=== PATIENT | female | born 1955 | race Caucasian/White ===

== ENCOUNTER 2017-05-09 10:48 | Emergency (ER) | payer BC ==
[~2017-05-09] VITALS: Ht 162.6 cm; Wt 84.1 kg
[2017-05-09 11:32] LABS: HEMATOCRIT 37.2 % (36.0-46.0); MCH 35.7 PG (29.0-34.0); MCHC 35.8 G/DL (30.0-36.0); MCV 99.7 FL (83-99); RBC DIS.WIDTH-CV 15.2 % (11.8-14.6); RED BLOOD COUNT 3.73 M/uL (3.80-5.20); WHITE BLOOD COUNT 9.1 K/uL (4.1-10.2)
[2017-05-09 11:40] LABS: CHLORIDE 106 mEq/L (99-109); POTASSIUM 4.2 mEq/L (3.7-5.4); SODIUM 141 mEq/L (136-147)
[2017-05-09 11:42] LABS: GLUCOSE 241 mg/dL (70-99)
[2017-05-09 11:43] LABS: ANION GAP 13 MEQ/L (2-14)
[2017-05-09 11:46] LABS: GFR ESTIMATE (CALCULATED) > 59 mL/min/
[2017-05-09 11:47] LABS: UREA NITROGEN (BUN) 8 mg/dL (9-23)
[2017-05-09 11:52] LABS: TROP-I INTERPRETATION NEGATIVE; TROPONIN-I 0.02 ng/mL (0.0-0.30)
[2017-05-09 12:11] LABS: IMM.PLATELET FRACTION 12.4 (1-7); MEAN PLAT.VOLUME 12.4 uM^3 (9.5-12.4); PLAT.SUFFICIENCY DECREASED; PLATELET COUNT 46 K/uL (156-360)
[2017-05-09 13:18] LABS: ADD MIUA? YES; BILIRUBIN NEGATIVE; BLOOD SMALL; COLOR AMBER ((YELLOW)); GLUCOSE (STRIP) NEGATIVE; KETONES NEGATIVE; LEUKOCYTES NEGATIVE; NITRITE NEGATIVE; PROTEIN (STRIP) 100; SPECIFIC GRAVITY 1.023 (1.000-1.030)
[2017-05-09 13:23] LABS: BACTERIA RARE /HPF; EPITHELIAL CELLS 3+ /HPF; HYALINE CASTS 20-30 /LPF; MUCUS 1+ /LPF; RED BLOOD CELLS 0-5 /HPF (0-5); UCUL ADDED? YES; URIC ACID CRYSTALS 3+ /HPF
[2017-05-09 13:38] LABS: INTER. NORMALIZED RATIO 1.3; PROTHROMBIN TIME 14.5 SEC (10.2-12.9)
[2017-05-09 13:41] LABS: PTT 42.6 SEC (25-37)
[2017-05-09 13:45] LABS: ALKALINE PHOSPHATASE 184 IU/L (3-129)
[2017-05-09 13:48] LABS: DIRECT BILIRUBIN 0.9 mg/dL (0.0-0.3)
[2017-05-09 15:00] LABS: TROP-I INTERPRETATION NEGATIVE; TROPONIN-I 0.01 ng/mL (0.0-0.30)
[2017-05-09 16:15] VITALS: BP 153/72
== END 2017-05-09 16:17 | disposition home or self-care (01) ==
LOC: EME 10:48
PROVIDERS: Physician Assistant Medical
DX: S40.021A Contusion of right upper arm, initial encounter (principal); X58.XXXA Exposure to other specified factors, initial encounter; D69.6 Thrombocytopenia, unspecified; K74.60 Unspecified cirrhosis of liver; N64.4 Mastodynia; Z98.890 Other specified postprocedural states; R31.9 Hematuria, unspecified; Z87.891 Personal history of nicotine dependence
CPT/HCPCS: 80048; 80076; 81003; 84484; 85027; 85610; 85730; 87086; 93005; 93971; 99281; 99284; J2270